=== PATIENT | female | born 1950 | race Caucasian/White ===

== ENCOUNTER 2017-02-05 08:45 | Day surgery (SDC) | payer MEDICARE, BC ==
[~2017-02-05] VITALS: Ht 154.9 cm; Wt 113.4 kg
[~2017-02-05 08:45] MED LIST: ALBU17IN INH; ASPI1TAB PO; BUPR300T34 PO; BUSP5TA PO; CELE-19 PO; DETR2CAP PO; ESTR62CR PV; LEVO25TA5 PO; OMEP20CA3 PO; STOO100C PO; ULTR50TA PO; XYZA5TAB2 PO
[2017-02-05] MEDS ORDERED: LR 1,000 ML IV SCH ×3 (09:00→16:00)
[2017-02-05] MEDS ORDERED: PROPOFOL 200 MG/20 ML VIAL As Ordered ONE (10:10)
[2017-02-05] MEDS ORDERED: ONDANSETRON 4MG/2ML VIAL (J2405) As Ordered ONE (10:10)
[2017-02-05] MEDS ORDERED: ROCURONIUM BROMIDE 50 MG/5 ML VIAL As Ordered ONE ×2 (10:11→12:28)
[2017-02-05] MEDS ORDERED: LIDOCAINE 2% INJ 100 MG/5 ML SDV (FOR ANES.) As Ordered ONE (10:11)
[2017-02-05] MEDS ORDERED: fentaNYL 100 MCG/2 ML INJECTION (J3010) As Ordered ONE ×2 (10:11→13:16)
[2017-02-05] MEDS ORDERED: MIDAZOLAM INJ 2 MG/2 ML VIAL (J2250) As Ordered ONE (10:11)
[2017-02-05] MEDS ORDERED: NEOSTIGMINE 1MG/ML 5 ML SYRINGE (J2710) As Ordered ONE (10:23)
[2017-02-05] MEDS ORDERED: GLYCOPYRROLATE INJ 0.2 MG/ML 2 ML VIAL As Ordered ONE (10:23)
[2017-02-05] MEDS ORDERED: EPINEPHrine 1MG/ML INJ 30ML MD-VIAL As Ordered ONE (10:31)
[2017-02-05] MEDS ORDERED: LIDOCAINE W/EPINEPHRINE 1% 20ML VIAL As Ordered ONE (10:31)
[2017-02-05] MEDS ORDERED: BACITRACIN OINT 30GM As Ordered ONE (10:31)
[2017-02-05] MEDS ORDERED: METHYLENE BLUE 0.5% (5MG/ML) 10 ML AMP (PROVAYBLUE)(Q9968 PER 1MG) As Ordered ONE (10:40)
[2017-02-05] MEDS ORDERED: dexameTHASONE 4 MG/ML 1ML VIAL (J1100) As Ordered ONE (10:47)
[2017-02-05] MEDS ORDERED: PERCOCET 5MG/325MG TAB PO PRN (16:00)
[2017-02-05] MEDS ORDERED: NALBUPHINE HCL 10 MG/ML AMP (J2300) IV PRN (16:00)
[2017-02-05] MEDS ORDERED: ONDANSETRON 4MG/2ML VIAL (J2405) IV PRN (16:00)
[2017-02-05] MEDS ORDERED: HYDROmorphone HCL 1 MG/ML SYRINGE (J1170) IV PRN (16:00)
[2017-02-05] MEDS ORDERED: MORPHINE 10 MG/ML 1ML VIAL IV PRN (16:00)
[2017-02-05] MEDS ORDERED: fentaNYL 100 MCG/2 ML INJECTION (J3010) IV PRN (16:00)
[2017-02-05] MEDS ORDERED: diphenhydrAMINE INJ 50MG/ML VIAL (J1200) IV PRN (16:00)
[2017-02-05] MEDS ORDERED: traMADol 50 MG TAB PO PRN (16:15)
[2017-02-05] MEDS ORDERED: traMADol 50 MG TAB As Ordered ONE (16:17)
[2017-02-05 16:30] VITALS: BP 136/64
--- NOTE | 2017-02-05 16:50 | RO ---
DATE OF PROCEDURE: 02/05/2017 PREOPERATIVE DIAGNOSES: Nasal collapse with scarring. POSTOPERATIVE DIAGNOSES: Nasal collapse with scarring. OPERATIVE PROCEDURE: Rhinoplasty with frontal forehead flap and rib graft. SURGEON: Reddy Solorzano MD EDGE MOLDER: Bereket Martinez MD ANESTHESIA: General anesthesia. DESCRIPTION OF PROCEDURE: Under general anesthesia, with the patient intubated, the patient was draped in the usual manner. I started first by making an incision over the 7th rib dividing skin and subcutaneous tissues down through the fat and bleeding was controlled with cautery. I went down to the rib, made an incision over the rib and then resected a 3 cm portion of the rib. Once this was done, then I checked it putting water in the wound and with positive ventilation there was no air escape, so there was no leak into the thoracic cavity. So, I closed the wound with interrupted Vicryl and Prolene suture. I did put a Sneha drain within the wound prior to closure. The graft was then placed in saline. Then what I did is I mapped out the nasal units on the nose. The area was scarred from the columella all the way to the super tip area. It was collapsed, so I marked out that area and then I excised the skin. I took measurements and the measurement from the superior to inferior border of the dorsal was 2.5 cm and then the one from the columella was 1.5 cm. So, then what I did, was I divided the lower lateral cartilages anteriorly. I then took the rib graft, then I trimmed it to the appropriate size and shape. Once I was happy with this, I took small piece of thin cartilage and I placed it between the border of the medial-lateral crura of the lower lateral cartilage and then sutures it in place to give some support. Then, I sutured the dorsal strut cartilage graft in with #4-0 Vicryl. Once that was done, then I took a impression of the defect and then I designed the forehead flap for this. I did a left-sided flap and I went 2 cm from the midline to identify the artery and then the flap was 1.5 cm wide. Then, at 5 cm was the upper border of the dorsal portion, then there was the 1.5 cm columella extension from that, which went slightly into the hairline. I did trim the hair. I infiltrated with lidocaine and epinephrine. Then what I did was I incised the outline of the flap and then mobilized it, elevated it. Bleeding was controlled with cautery. Once I had mobilized it, then I wrapped it in wet gauze, I as I did with the tip of the nose and then I took and undermined the forehead skin so I could reapproximate the defect and closed it with interrupted #3-0 Vicryl. I did put a Rhine drain in that area as well. Then, once that was done, I sutured the flap into place, started first at the alar notch and then extending laterally and then inferiorly down to the columella. It was closed with interrupted #5-0 nylon. There was very little bleeding of the flap so I just wrapped it with Adaptic gauze and then the wound was dressed. The patient extubated and transferred to the recovery room in excellent condition. Less than 50 mL estimated blood loss at max.
[2017-02-05 17:00] VITALS: BP 139/75
[2017-02-05 18:00] VITALS: BP 140/77
[2017-02-05 19:00] VITALS: BP 135/74
[2017-02-05] MEDS: ACETAMINOPH W/CODEINE #3 TAB UD PO PRN (19:06)
[2017-02-05 20:00] VITALS: BP 125/68
[2017-02-05 21:00] VITALS: BP 121/75
[2017-02-06] VITALS: BP 127/68
[2017-02-06] MEDS ORDERED: **UNRESOLVED NON-FORMULARY MED ORDER XX SCH (00:01)
[2017-02-06] MEDS: ACETAMINOPH W/CODEINE #3 TAB UD PO PRN ×4 (02:22→16:08)
[2017-02-06 04:00] VITALS: BP 119/65
[2017-02-06] MEDS ORDERED: LEVOTHYROXINE 0.025 MG TAB (25 MCG) PO SCH (06:00)
[2017-02-06 08:00] VITALS: BP 117/56
[2017-02-06] MEDS ORDERED: busPIRone 5 MG TAB PO SCH (09:00)
[2017-02-06] MEDS ORDERED: OMEPRAZOLE 20 MG CAP PO SCH (09:00)
[2017-02-06] MEDS ORDERED: buPROPion **XL** TABLET 150MG (WELLBUTRIN XL) PO SCH (09:00)
[2017-02-06 12:00] VITALS: BP 120/69
[2017-02-06] MEDS ORDERED: CODE30TA3 PO (15:45)
[2017-02-06 16:00] VITALS: BP 151/70
== END 2017-02-06 16:25 | disposition home or self-care (01) ==
LOC: M SDC 08:45 → M PED 15:40 → M SDC 02-06 16:25
PROVIDERS: ATTEND Otolaryngology
DX: M95.0 Acquired deformity of nose (principal); T88.59XD Other complications of anesthesia, subsequent encounter; E03.9 Hypothyroidism, unspecified; K58.8 Other irritable bowel syndrome; R29.898 Other symptoms and signs involving the musculoskeletal system; M12.9 Arthropathy, unspecified; M54.5 Low back pain; F41.9 Anxiety disorder, unspecified; K21.9 Gastro-esophageal reflux disease without esophagitis; F32.9 Major depressive disorder, single episode, unspecified; M48.06 Spinal stenosis, lumbar region; G43.909 Migraine, unspecified, not intractable, without status migrainosus; E66.01 Morbid (severe) obesity due to excess calories; E78.1 Pure hyperglyceridemia; J45.909 Unspecified asthma, uncomplicated; R32 Unspecified urinary incontinence; K43.9 Ventral hernia without obstruction or gangrene; Z88.0 Allergy status to penicillin; Z88.1 Allergy status to other antibiotic agents; Z88.8 Allergy status to other drugs, medicaments and biological substances; Z91.048 Other nonmedicinal substance allergy status; Z79.899 Other long term (current) drug therapy; Z79.82 Long term (current) use of aspirin; Z91.040 Latex allergy status; Z90.710 Acquired absence of both cervix and uterus
CPT/HCPCS: 15731; 20900; 30410; J1100; J2250; J2405; J2710; J3010

== ENCOUNTER → 2017-03-02 | Day surgery (SDC) | payer MEDICARE, BC ==
[~2017-03-02] VITALS: Ht 154.9 cm; Wt 113.9 kg
[~2017-03-02] MED LIST changes: +ACETAMINOPH W/CODEINE #3 TAB UD PO PRN; +BACITRACIN OINT 30GM As Ordered ONE; +CODE30TA3 PO; +EPINEPHrine 1MG/ML INJ 30ML MD-VIAL As Ordered ONE; +GLYCOPYRROLATE INJ 0.2 MG/ML 2 ML VIAL As Ordered ONE; +HYDROmorphone HCL 1 MG/ML SYRINGE (J1170) IV PRN; +LIDOCAINE 2% INJ 100 MG/5 ML SDV (FOR ANES.) As Ordered ONE; +LIDOCAINE W/EPINEPHRINE 1% 20ML VIAL As Ordered ONE; +LR 1,000 ML IV ONE; +LR 1,000 ML IV SCH; +MIDAZOLAM INJ 2 MG/2 ML VIAL (J2250) As Ordered ONE; +NEOSTIGMINE 1MG/ML 5 ML SYRINGE (J2710) As Ordered ONE; +ONDANSETRON 4MG/2ML VIAL (J2405) As Ordered ONE; +ONDANSETRON 4MG/2ML VIAL (J2405) IV PRN; +PROPOFOL 200 MG/20 ML VIAL As Ordered ONE; +ROCURONIUM BROMIDE 50 MG/5 ML VIAL As Ordered ONE; +SUCCINYLCHOLINE 100 MG/5 ML SYRINGE (J0330) As Ordered ONE; +dexameTHASONE 4 MG/ML 1ML VIAL (J1100) As Ordered ONE; +diphenhydrAMINE INJ 50MG/ML VIAL (J1200) IV PRN; +fentaNYL 100 MCG/2 ML INJECTION (J3010) As Ordered ONE
--- NOTE | 2017-03-02 11:11 | RO ---
DATE OF PROCEDURE: 03/02/2017 PREOPERATIVE DIAGNOSIS: Nasal deformity. POSTOPERATIVE DIAGNOSIS: Nasal deformity. OPERATIVE PROCEDURE: Second-stage reconstruction nasal flap and scar revision. SURGEON: Reddy Solorzano MD RETAIL MERCHANDISER: Scotty Edwards PA-C ANESTHESIA: DESCRIPTION OF PROCEDURE: Under general anesthesia with the patient intubated, the patient was draped in the usual manner. I infiltrated the area with lidocaine with epinephrine. First, I divided the flap and I cauterized the vessels. Then, I revised the portion medial to the eyebrow by removing some skin and soft tissues. Once this was done, then I controlled bleeding with bipolar cautery. I then set the flap into its position and sutured with #5-0 nylon. Next, I revised the distal portion of the flap on the superior part of the defect by thinning the soft tissues first, then trimming the skin edges so that it would fit, and then controlling the bleeding with bipolar cautery. I then sutured the flap into position. Lastly, the donor defect had a small nonhealing area, so excised that; and then once it was excised, then I undermined it and put #3-0 Prolene suture to close it. Patient tolerated the procedure well. Less than 5 mL estimated blood loss. Patient was extubated and transferred to the recovery room in excellent condition. Edited: [email or web address] 03/02/2017 [id number]
[2017-03-02] MEDS: PERCOCET 5MG/325MG TAB PO PRN ×2 (11:31→12:51)
[2017-03-02] MEDS: fentaNYL 100 MCG/2 ML INJECTION (J3010) IV PRN ×4 (11:32→12:00)
[2017-03-02 13:05] VITALS: BP 114/68
== END | disposition home or self-care (01) ==
LOC: M SDC 06:57
PROVIDERS: ATTEND Otolaryngology
DX: J34.89 Other specified disorders of nose and nasal sinuses (principal); E03.9 Hypothyroidism, unspecified; F41.9 Anxiety disorder, unspecified; F32.9 Major depressive disorder, single episode, unspecified; J45.909 Unspecified asthma, uncomplicated; Z79.899 Other long term (current) drug therapy; Z79.82 Long term (current) use of aspirin; Z88.0 Allergy status to penicillin; Z88.8 Allergy status to other drugs, medicaments and biological substances
CPT/HCPCS: 15731; J0330; J1100; J2250; J2405; J2710; J3010

== ENCOUNTER → 2017-03-18 | Outpatient (REF) | payer MEDICARE, BC ==
[~2017-03-18] MED LIST changes: -ACETAMINOPH W/CODEINE #3 TAB UD PO PRN; -BACITRACIN OINT 30GM As Ordered ONE; -EPINEPHrine 1MG/ML INJ 30ML MD-VIAL As Ordered ONE; -GLYCOPYRROLATE INJ 0.2 MG/ML 2 ML VIAL As Ordered ONE; -HYDROmorphone HCL 1 MG/ML SYRINGE (J1170) IV PRN; -LIDOCAINE 2% INJ 100 MG/5 ML SDV (FOR ANES.) As Ordered ONE; -LIDOCAINE W/EPINEPHRINE 1% 20ML VIAL As Ordered ONE; -LR 1,000 ML IV ONE; -LR 1,000 ML IV SCH; -MIDAZOLAM INJ 2 MG/2 ML VIAL (J2250) As Ordered ONE; -NEOSTIGMINE 1MG/ML 5 ML SYRINGE (J2710) As Ordered ONE; -ONDANSETRON 4MG/2ML VIAL (J2405) As Ordered ONE; -ONDANSETRON 4MG/2ML VIAL (J2405) IV PRN; -PROPOFOL 200 MG/20 ML VIAL As Ordered ONE; -ROCURONIUM BROMIDE 50 MG/5 ML VIAL As Ordered ONE; -SUCCINYLCHOLINE 100 MG/5 ML SYRINGE (J0330) As Ordered ONE; -dexameTHASONE 4 MG/ML 1ML VIAL (J1100) As Ordered ONE; -diphenhydrAMINE INJ 50MG/ML VIAL (J1200) IV PRN; -fentaNYL 100 MCG/2 ML INJECTION (J3010) As Ordered ONE
== END ==
LOC: M LAB REF 12:44
PROVIDERS: ATTEND Otolaryngology
DX: M95.0 Acquired deformity of nose (principal)

== ENCOUNTER 2018-03-01 07:03 | Day surgery (SDC) | payer MEDICARE, BC ==
[2018-03-01] MEDS ORDERED: LR 1,000 ML IV ×3 (07:30→11:30)
[2018-03-01] MEDS: EPINEPHrine 1MG/ML INJ 30ML MD-VIAL As Ordered (08:51)
[2018-03-01] MEDS ORDERED: LIDOCAINE 2% INJ 100 MG/5 ML SDV (FOR ANES.) As Ordered (09:22)
[2018-03-01] MEDS ORDERED: ONDANSETRON 4MG/2ML VIAL (J2405) As Ordered (09:22)
[2018-03-01] MEDS ORDERED: fentaNYL 100 MCG/2 ML INJECTION (J3010) As Ordered (09:22)
[2018-03-01] MEDS ORDERED: METOCLOPRAMIDE INJ 10MG/2ML VIAL (J2765) As Ordered (09:22)
[2018-03-01] MEDS ORDERED: MIDAZOLAM INJ 2 MG/2 ML VIAL (J2250) As Ordered (09:22)
[2018-03-01] MEDS ORDERED: PROPOFOL 200 MG/20 ML VIAL As Ordered (09:23)
[2018-03-01] MEDS ORDERED: SUCCINYLCHOLINE 100 MG/5 ML SYRINGE (J0330) As Ordered (09:24)
[2018-03-01] MEDS ORDERED: ROCURONIUM BROMIDE 50 MG/5 ML VIAL As Ordered (09:24)
[2018-03-01] MEDS: LIDOCAINE W/EPINEPHRINE 1% 20ML VIAL As Ordered (09:49)
[2018-03-01] MEDS ORDERED: PHENYLephrine HCL 500 MCG/5 ML (100MCG/ML) SYRINGE (J2370) As Ordered (09:55)
[2018-03-01] MEDS: BACITRACIN OINT 30GM As Ordered (10:38)
[2018-03-01] MEDS ORDERED: HYDROMORPHONE HCL 0.5 MG/ 0.5 ML SYRINGE (J1170 PER 1) IV (11:30)
[2018-03-01] MEDS ORDERED: fentaNYL 100 MCG/2 ML INJECTION (J3010) IV (11:30)
[2018-03-01] MEDS ORDERED: METOCLOPRAMIDE INJ 10MG/2ML VIAL (J2765) IV (11:30)
[2018-03-01] MEDS ORDERED: ONDANSETRON 4MG/2ML VIAL (J2405) IV (11:30)
[2018-03-01] MEDS ORDERED: PERCOCET 5MG/325MG TAB PO (11:30)
== END 2018-03-01 12:30 | disposition home or self-care (01) ==
LOC: M SDC 07:03
DX: M95.0 Acquired deformity of nose (principal); E03.9 Hypothyroidism, unspecified; K58.9 Irritable bowel syndrome, unspecified; K21.9 Gastro-esophageal reflux disease without esophagitis; M12.9 Arthropathy, unspecified; M54.5 Low back pain; F41.9 Anxiety disorder, unspecified; F32.9 Major depressive disorder, single episode, unspecified; G43.909 Migraine, unspecified, not intractable, without status migrainosus; J45.909 Unspecified asthma, uncomplicated; R32 Unspecified urinary incontinence; M48.061 Spinal stenosis, lumbar region without neurogenic claudication; K43.9 Ventral hernia without obstruction or gangrene; E66.01 Morbid (severe) obesity due to excess calories; Z68.42 Body mass index [BMI] 45.0-49.9, adult; Z88.0 Allergy status to penicillin; Z88.1 Allergy status to other antibiotic agents; Z88.6 Allergy status to analgesic agent; Z88.8 Allergy status to other drugs, medicaments and biological substances; Z91.040 Latex allergy status; Z79.899 Other long term (current) drug therapy; Z79.82 Long term (current) use of aspirin; Z90.710 Acquired absence of both cervix and uterus
CPT/HCPCS: 13152

== ENCOUNTER → 2025-08-15 | Outpatient (CLI) | payer MEDICARE ==
[~2025-08-15] MED LIST changes: +ACET300T47 PO; -ASPI1TAB PO; +ASPI81TA26 PO; +BUPR-766 PO; -BUPR300T34 PO; -CELE-19 PO; +CELE0.09 PO; +CELE1CAP4 PO; -CODE30TA3 PO; +GABA-1171 PO; +LEVOTAB10 PO; +MM S100C PO; +OMEP1CAP73 PO; -OMEP20CA3 PO; +PERC5TAB12 PO; +QC F0.52 PO; -STOO100C PO; -ULTR50TA PO; +ULTR50TA8 PO; +VENTAER INH; +XARE10TA PO
== END ==
LOC: M SOG 07:26
PROVIDERS: ATTEND Orthopaedic Surgery
DX: M17.12 Unilateral primary osteoarthritis, left knee (principal); Z96.651 Presence of right artificial knee joint